=== PATIENT | female | born 2000 | race African-American/Black ===

== ENCOUNTER 2022-04-28 13:23 | Emergency (ER) | payer OTHER ==
[~2022-04-28] VITALS: Ht 162.6 cm; Wt 88.0 kg
[2022-04-28 13:28] VITALS: BP 122/54
== END 2022-04-28 18:20 | disposition left against medical advice (07) ==
LOC: ER 13:44
DX: Z53.21 Procedure and treatment not carried out due to patient leaving prior to being seen by health care provider (principal)
CPT/HCPCS: 99281